=== PATIENT | male | born 1965 | race Caucasian/White ===

== ENCOUNTER 2020-05-02 03:11 | Emergency (ER) | payer OTHER ==
[~2020-05-02] VITALS: Ht 188 cm; Wt 103.0 kg
--- NOTE | 2020-05-02 03:20 | NUR ---
PT AAOX4. BIBS FOR C/O UPPER CHEST PAIN X 2 WEEKS. PT PALCED ON POSTAL SUPERINTENDENT AND PULSE OX. ANSON. AT BEDSIDE FOR EVLA. AWAITING ODERS
--- NOTE | 2020-05-02 03:57 | NUR ---
RADIOLOGY AT BEDSIDE
--- NOTE | 2020-05-02 04:32 | NUR ---
LABS COLLECTED & SENT TO [facility]
[2020-05-02 04:43] LABS: BASOPHILS # (AUTO) 0.1 /CMM (0.0-0.2); BASOPHILS % (AUTO) 1.5 % (0.0-2.0); EOSINOPHILS % (AUTO) 2.3 % (0.0-6.0); HEMATOCRIT 45 % (39-51); HEMOGLOBIN 15.4 g/dL (13.5-17.5); LYMPHOCYTES # (AUTO) 1.8 /CMM (0.8-4.8); LYMPHOCYTES % (AUTO) 28.1 % (20.0-44.0); MEAN CORPUSCULAR HGB CONC 34 g/dl (31.0-36.0); MEAN CORPUSCULAR VOLUME 104 fL (80-96); MONOCYTES # (AUTO) 0.6 /CMM (0.1-1.30); MONOCYTES % (AUTO) 9.2 % (2.0-12.0); NEUTROPHILS # (AUTO) 3.9 /CMM (1.8-8.9); NEUTROPHILS % (AUTO) 58.9 % (43.0-81.0); PLATELET COUNT (AUTO) 246 /CMM (150-450); RED BLOOD CELL COUNT(AUTO) 4.31 MIL/uL (4.5-6.0); WHITE BLOOD COUNT (AUTO) 6.6 K/uL (4.3-11.0)
[2020-05-02 05:05] LABS: ALANINE AMINOTRANSFERASE 72 U/L (12-78); ALBUMIN 3.6 g/dL (3.4-5.0); ALKALINE PHOSPHATASE 71 U/L (46-116); ASPARTATE AMINOTRANSFERASE 80 U/L (15-37); BILIRUBIN,DIRECT 0.2 mg/dL (0.0-0.2); BILIRUBIN,TOTAL 0.5 mg/dL (0.2-1.0); CARBON DIOXIDE 25 mmol/L (21-32); CHLORIDE 99 mmol/L (98-107); CREATININE 0.8 mg/dL (0.6-1.3); GLUCOSE 91 mg/dL (74-106); POTASSIUM 3.8 mmol/L (3.5-5.1); SODIUM SERUM 137 mmol/L (136-145); TOTAL PROTEIN, SERUM 6.8 g/dL (6.4-8.2); UREA NITROGEN, BLOOD 8 mg/dL (7-18)
[2020-05-02 05:49] VITALS: BP 125/76
--- NOTE | 2020-05-02 05:49 | NUR ---
Patient discharged to home in stable condition. Written and verbal after care instructions given. Patient verbalizes understanding of instruction. PT ambulated with steady gait. vss.
== END 2020-05-02 05:50 | disposition home or self-care (01) ==
LOC: ER 03:16
DX: R07.89 Other chest pain (principal); I10 Essential (primary) hypertension; G70.9 Myoneural disorder, unspecified; F17.200 Nicotine dependence, unspecified, uncomplicated; Z88.0 Allergy status to penicillin
CPT/HCPCS: 36415; 71045-TC; 80048-TC; 80076-TC; 80305; 84484-TC; 85025-TC

== ENCOUNTER 2020-05-19 01:58 | Emergency (ER) | payer OTHER ==
[~2020-05-19] VITALS: Ht 172.7 cm; Wt 90.7 kg
--- NOTE | 2020-05-19 02:20 | NUR ---
PT BIBSELF C/O SUICIDAL IDEATION WITH PLAN TO JUMP IN FRONT OF BUS. DENIES HI AT THIS TIME. PT AAOX4. VITAL SIGNS STABLE. RESPIRATIONS EVEN AND UNLABORED. SKIN WARM AND INTACT. NO ACUTE DISTRESS NOTED AT THIS TIME. SUICIDAL PRECAUTIONS INITIATED. PT PLACED IN GOWN, BELONGINGS COLLECTED AND LOCKED IN PATIENT LOCKER. SITTER AT BEDSIDE. WILL CONTINUE TO MONITOR
--- NOTE | 2020-05-19 02:26 | NUR ---
URINE COLLECTED. SENT TO LAB
[2020-05-19 02:43] LABS: APPEARANCE,URINE CLEAR (CLEAR); BILIRUBIN,URINE NEGATIVE (NEGATIVE); BLOOD, URINE NEGATIVE Ery/uL (NEGATIVE); COLOR,URINE YELLOW (YELLOW); KETONES,URINE NEGATIVE (NEGATIVE); LEUKOCYTE ESTERASE ,URINE NEGATIVE (NEGATIVE); NITRITE, URINE NEGATIVE (NEGATIVE); PH,URINE 5.5 (5.0-8.0); PROTEIN,URINE NEGATIVE (NEGATIVE); UGLUCOSE NEGATIVE (NEGATIVE); UROBILINOGEN,URINE 0.2 EU/dL (0.2)
[2020-05-19 03:12] LABS: BASOPHILS # (AUTO) 0.1 /CMM (0.0-0.2); BASOPHILS % (AUTO) 0.7 % (0.0-2.0); EOSINOPHILS % (AUTO) 1.9 % (0.0-6.0); HEMATOCRIT 48 % (39-51); HEMOGLOBIN 16.4 g/dL (13.5-17.5); LYMPHOCYTES # (AUTO) 1.7 /CMM (0.8-4.8); LYMPHOCYTES % (AUTO) 18.4 % (20.0-44.0); MEAN CORPUSCULAR HGB CONC 35 g/dl (31.0-36.0); MEAN CORPUSCULAR VOLUME 105 fL (80-96); MONOCYTES # (AUTO) 0.9 /CMM (0.1-1.30); MONOCYTES % (AUTO) 9.2 % (2.0-12.0); NEUTROPHILS # (AUTO) 6.4 /CMM (1.8-8.9); NEUTROPHILS % (AUTO) 69.8 % (43.0-81.0); PLATELET COUNT (AUTO) 233 /CMM (150-450); RED BLOOD CELL COUNT(AUTO) 4.52 MIL/uL (4.5-6.0); WHITE BLOOD COUNT (AUTO) 9.2 K/uL (4.3-11.0)
[2020-05-19 03:19] LABS: CALCIUM, SERUM 8.6 mg/dL (8.5-10.1); CARBON DIOXIDE 26 mmol/L (21-32); CHLORIDE 96 mmol/L (98-107); CREATININE 0.9 mg/dL (0.6-1.3); GLUCOSE 113 mg/dL (74-106); POTASSIUM 3.5 mmol/L (3.5-5.1); SODIUM SERUM 134 mmol/L (136-145); UREA NITROGEN, BLOOD 16 mg/dL (7-18)
[2020-05-19 03:25] LABS: ACETAMINOPHEN < 2 ug/ml (10-30); ALANINE AMINOTRANSFERASE 65 U/L (12-78); ALBUMIN 3.9 g/dL (3.4-5.0); ALCOHOL, BLOOD 46 mg/dL (0-0); ALKALINE PHOSPHATASE 68 U/L (46-116); ASPARTATE AMINOTRANSFERASE 32 U/L (15-37); BILIRUBIN,DIRECT 0.1 mg/dL (0.0-0.2); BILIRUBIN,TOTAL 0.2 mg/dL (0.2-1.0); SALICYLATE 5.7 mg/dL (2.8-20.0); TOTAL PROTEIN, SERUM 7.6 g/dL (6.4-8.2)
--- NOTE | 2020-05-19 04:44 | NUR ---
CLINICAL FAXED TO [facility] FOR VOLUNTARY PSYCH ADMISSION.
[2020-05-19] MEDS ORDERED: LORAZEPAM 1 MG TABLET PO ONE (05:00)
[2020-05-19] MEDS ORDERED: LORAZEPAM 1 MG TABLET ONE ×2 (05:02→23:41)
--- NOTE | 2020-05-19 08:09 | NUR ---
Patient asleep but arousable non distress @ this time vitals taken and filed continue to monitor .
--- NOTE | 2020-05-19 11:18 | NUR ---
Patient awake alert noted no agitaion no hallucination he follows command lunch tray given safety try maria dolores carrillo .
--- NOTE | 2020-05-19 12:00 | NUR ---
Patient awake alert no agitaion or hallucination @ this time sitter @ bedside continue to monitor lunch served awaiting for bed .
--- NOTE | 2020-05-19 13:03 | NUR ---
CALLED [facility] WAITING FOR BEDS.
--- NOTE | 2020-05-19 17:50 | NUR ---
Spoke to suzanne Sherman "Still waiting there will be pts for late discharge (10pm) Wanting to hold 1 more night and priority transfer in am"
--- NOTE | 2020-05-19 18:58 | NUR ---
Patient awake alert non distress noted no halluciantion no agitaion @ this time .
--- NOTE | 2020-05-19 20:33 | NUR ---
PATIENT AMBULATED TO THE RESTROOM WITH A STEADY GAIT.
--- NOTE | 2020-05-19 20:54 | NUR ---
PT RESTING COMFORTABLY IN BED. VITAL SIGNS STABLE. SITTER AT BEDSIDE. WILL CONTINUE TO MONITOR
--- NOTE | 2020-05-19 21:53 | NUR ---
PATIENT AMBULATED TO THE RESTROOM WITH A STEADY GAIT.
[2020-05-20] MEDS ORDERED: LORAZEPAM 1 MG TABLET PO ONE
--- NOTE | 2020-05-20 06:57 | NUR ---
SPOKE WITH BEATRIZ FROM [facility], STILL NO BED AVAILABLE AT THIS TIME
--- NOTE | 2020-05-20 08:01 | NUR ---
PATIENT AWAKE ALERT AND ORIENTED, NO DISTRESS NOTED. NEEDS ATTENDED.
--- NOTE | 2020-05-20 08:46 | NUR ---
ORDERED BREAKFAST FOOD TRAY.
--- NOTE | 2020-05-20 10:08 | NUR ---
OLIVER AT BEDSIDE FOR EVAL.
--- NOTE | 2020-05-20 10:44 | NUR ---
SPOKE TO BEATRIZ FROM [facility]. PATIENT IS ACCEPTED TO [facility] UNDER DR. GARCIA/DR. CORREA. PT IS GOING TO UNIT 2.
--- NOTE | 2020-05-20 10:53 | NUR ---
CALLED [facility] FOR TRANSPORT. REFERENCE NUMBER [id number].
--- NOTE | 2020-05-20 11:18 | NUR ---
RECIEVED A CALL FROM CALL THE CAR. 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
--- NOTE | 2020-05-20 11:29 | NUR ---
NUMBER FOR REPORT [phone].
[2020-05-20 11:33] VITALS: BP 146/91
--- NOTE | 2020-05-20 11:33 | NUR ---
REPORT GIVEN TO MINDY PAN AT [facility]
--- NOTE | 2020-05-20 11:33 | NUR ---
Michelle mckeon in ED - 05/20/20 at 1133 by CATHY REPORT GIVEN TO MINDY PAN AT [facility].
--- NOTE | 2020-05-20 12:11 | NUR ---
PATIENT REPORT GIVEN TO LICENSED PROFESSIONAL COUNSELOR. ALL BELONGINGS GIVEN TO THE PATIENT. NO DISTRESS NOTED. PATIENT TRANSFERRED TO [facility] IN STABLE CONDITION.
--- NOTE | 2020-05-20 14:03 | NUR ---
This SW met with the patient at bedside. Patient is a 55-year-old male. Patient is alert and oriented x4. Patient was sitting up on the bed awaiting this SW to assess him. Patient confirmed demographics on face sheet including date of , social security number, and current address. Per MD note, patient presented to [facility] ER on 05/19 with suicidal ideation. Per MD note, patient had been suicidal for 2 days prior to [facility] arrival. Per MD note, patients plan is to run and jump in front of a bus. Per patient, he lives in a home with three other people and a dog. Patient informed this SW that he has been living in this home for 5 months. Per patient, he reports that several systems have not worked for him including mental health, financial, housing, and police. Patient reports that he has expressed him legal rights for many of these systems including mental health and housing. Per patient, he is prone to contract COVID-19 as he has liver cirrhosis which makes him more immunocompromised than the average person. Per patient, [employer] has not helped him and has been able to stay in this home with three other individuals for some time until he is able to gain a job interview during this pandemic. Per patient, his [employer] social work case manager has been very helpful, and patient currently receives $200 in [employer]. Per patient, he currently has approximately $80 in food stamps. Per patient, has been diagnosed with attention deficit hyperactivity disorder (ADHD), post-traumatic stress disorder, and major depression. Per patient, he presented to [facility] on 05/19 after conducting research on this hospital location and would like to receive voluntary psychiatric treatment. SW to follow up with Seamus at [facility] regarding patient status. Per Seamus, patient clinicals have been review, pending acceptance due to current discharges being conduct. Per Seamus, [facility] intake to report back to [facility] ER staff regarding acceptance information.
== END 2020-05-20 12:12 ==
LOC: ER 01:59
DX: R45.851 Suicidal ideations (principal); F90.9 Attention-deficit hyperactivity disorder, unspecified type; I10 Essential (primary) hypertension; G70.9 Myoneural disorder, unspecified; Z88.0 Allergy status to penicillin
CPT/HCPCS: 36415; 80048; 80076; 80299; 80307 ×2; 80320; 81001; 85025; 87426; 99285; C9803; 81000-TC; G0480